=== PATIENT | male | born 1955 | race Caucasian/White ===

== ENCOUNTER 2025-01-05 13:43 | Outpatient (CLI) | payer MEDICARE, SELFPAY ==
--- NOTE | ~2025-01-05 | PE_ITS ---
EXAMINATION: PET_PETPSMAST_PT DATE: 01/05/2025 15:36 INDICATION: Prostate cancer TECHNIQUE: 4.765 mCi of Illucix Ga-68([id number]) was administered i.v. Low dose computed dagmar graphy (CT) images were acquired from the base of the brain to the base of the brain to the proximal thighs for attenuation correction and anatomic localization. Positron emission tomography (PET) image s were acquired in the same distribution beginning 77 minutes after injection. Images including fused PET/CT images were reconstructed in axial, coronal, and sagittal planes. Automated exposure control technique was employed. The dose-length product was 952.17mGy-cm. COMPARISON: None FINDINGS: Head/neck: Typical pattern of symmetric physiologic increased activity in the lacrimal, parotid and submandibula r glands as well as along the mucosa of the nasal and oral cavities, pharynx and hypopharynx. No path ologically enlarged cervical lymphadenopathy or suspicious foci of increased uptake in the visualized head or neck. Chest: Volume loss and mosaic attenuation in the bilateral lower lobes bladder significantly atelectasis wit h subsegmental regions of air trapping related to small airway disease. No suspicious pulmonary nodul es, pneumonia, pulmonary edema or pleural effusion. Heart size is normal. Mild arthroscopic coronary artery calcium location. No pericardial effusion. Thoracic aorta is normal in caliber. No pathologica lly enlarged or PSMA avid thoracic lymphadenopathy. Abdomen/pelvis/proximal thighs: Physiologic renal accumulation and excretion of activity in the kidneys, bladder and along portions o f ureters. Photopenic defect associated with a 2.7 cm exophytic cyst at the lower pole of the left ki dney. Prostatomegaly measuring 5.9 x 5.1 cm with approximately 1 cm focus of prominent asymmetric upt delia with maximal SUV of 16.8 at the anterior midline of the prostate consistent with primary prostate cancer. Normal degree and slightly heterogenous pattern of increased uptake throughout the liver wit hout radiologic correlate or dominant PSMA avid lesion. Spleen is not visualized and there are couple small nodular soft tissue densities in the region of the absent spleen which could represent mild sp lenosis. Multiple calcified gallstones in the otherwise normal decompressed gallbladder. The pancreas and bilateral adrenal glands are normal. Moderate uptake scattered throughout the bowels with typica l duodenal and proximal jejunal predominance and without radiologic correlate, also likely physiologi c. There is moderate diverticulosis along the descending and sigmoid colon without adjacent inflammat ory stranding to suggest diverticulitis. Small bilateral fat-containing hernias. Right inguinal herni a also contains the tip of the normal appendix.. No other abnormal foci of increased uptake or pathol ogically enlarged lymphadenopathy in the abdomen, pelvis or proximal thighs. Musculoskeletal: No suspicious lytic, blastic or abnormally FDG avid bone lesions. There are some chronic heterotopic ossification versus calcification along the periphery of the proximal right femoral diaphysis which s uggests sequela of old trauma. Small focus of mild likely extravasated soft tissue activity at the in jection site at the right antecubital fossa. IMPRESSION: 1. Single approximately 1 cm focus of moderate increased uptake at the anterior midline of the enlarg ed prostate consistent with primary prostate cancer. No lesion suspicious for metastatic disease. 2. Cholelithiasis. Reviewed, dictated and finalized at location A. IMPRESSION: 1. Single approximately 1 cm focus of moderate increased uptake at the anterior midline of the enlarged prostate consistent with primary prostate cancer. No l esion suspicious for metastatic disease. 2. Cholelithiasis.
--- OUTSIDE RECORDS SUMMARY | 2025-01-05 15:43 | XMS_ITS | Clinical Summary ---
Author Organization [facility] Address [address] [place] [address] Care Team Providers Care Pc Tech Name Role Phone Norman Galdamez MD Primary Care Provider [phone] Facundo Miller MD Unavailable [phone] Allergies No known active allergies Medications omeprazole (PriLOSEC) 20 mg capsule Take 1 capsule (20 mg total) by mouth every morning Active aspirin 81 mg enteric coated tablet Take 1 tablet (81 mg total) by mouth daily 30 tablet 11 9 Active Additional Information Patient taking differently:81 mg oralDaily (early AM), Indications: prevention of thrombosis, Reported on 04/01/2023 multivitamin capsule Take 1 capsule by mouth every morning Active acetaminophen (TYLENOL) 500 mg tablet Take 2 tablets (1,000 mg total) by mouth every 6 (six) hours as needed for pain 40 tablet 1 Active ibuprofen (ADVIL,MOTRIN) 600 mg tablet Take 1 tablet (600 mg total) by mouth every 6 (six) hours as needed for pain 20 tablet 1 Active amLODIPine (NORVASC) 5 mg tabletIndication s:Other secondary hypertension Take 1 tablet (5 mg total) by mouth daily 90 tablet 1 5 Active hydroxyurea (HYDREA) 500 mg capsuleIndicatio ns:Polycythemia vera (HCC) Alternate taking 1500mg and 1000mg every other day. 75 capsule 5 5 Active clotrimazole 1 % cream Apply topically 2 (two) times a day 30 g 1 5 Active Active Problems Problem Noted Date Diagnosed Date Tinea 11/17/2024 Assessment & Plan (11/17/2024 8:08 AM DANCE PROFESSOR): Clotrimazole E scribed. Keep area clean and dry. Discussed typical duration of treatment. RTC if worsening or not resolving. He is in agreement with plan states understanding. Lipid screening 04/02/2024 Assessment & Plan (04/02/2024 8:23 AM CDT): Lipid panel normal. Continue with diet and exercise. Encounter for Medicare annual wellness exam 03/16 Assessment & Plan (04/02/2024 9:26 AM CDT): Visit preventive in nature. We reviewed medications, chronic conditions, risk factors, lifestyle recommendations. Reviewed immunization recommendations. Follow-up in 1 year for annual wellness. Essential hypertension 04/02/2024 Assessment & Plan (04/02/2024 8:23 AM CDT): Normotensive. Continue taking amlodipine. Red flags reviewed. Bilateral impacted cerumen 04/02/2024 Assessment & Plan (04/02/2024 10:00 AM CDT): Canals cleared. RTC for any recurrent concerns. Aspirin long-term use 02/06/2023 Prostate cancer 01/16/2021 Assessment & Plan (04/02/2024 8:22 AM CDT): Following closely with urology, they are doing PSAs every 3 months High risk medication use 07/20/2020 Elevated PSA 01/19/2020 Assessment & Plan (04/02/2024 8:22 AM CDT): Following closely with urology, urology checking PSA every 3 months Gastroesophageal reflux disease without esophagi tis 01/14/2020 Assessment & Plan (01/14/2020 2:54 PM CDT): Stable on omeprazole and trying to eat a non stimulating diet. Screening for malignant neoplasm of colon 2019 Heart murmur previously undiagnosed 01/14/2020 Assessment & Plan (01/14/2020 2:55 PM CDT): Will await cardiology referral. Pruritus 06/10/2019 Polycythemia vera 03/04/2019 Assessment & Plan (04/02/2024 9:26 AM CDT): Has been stable. Following closely with hematology. Thrombocytosis 03/04/2019 HTN (hypertension) 02/11/2019 Assessment & Plan (11/17/2024 8:08 AM DANCE PROFESSOR): Controlled on amlodipine. No changes. Will continue to monitor. Assessment & Plan (02/11/2019 11:45 AM CDT): High blood pressures during admission - Started amlodipine 5 Chest pain 02/09/2019 Assessment & Plan (02/11/2019 11:40 AM CDT): resolved with 1 nitro at [facility] after 30 minutes, with no symptoms since. - start ASA 81 per recs from heme - Follow up with routine preventative care from PCP Pancreatic mass 02/09/2019 Assessment & Plan (02/11/2019 11:44 AM CDT): 3-4cm mass in the tail of the pancreas seen on OSH CT PE protocol - MRI - tumor appears be filled with blood. 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 - needs GI follow up and instructed to rescan in 6 months for growth Abnormal CBC 02/09/2019 Assessment & Plan (02/11/2019 11:46 AM CDT): elevated WBC, hgb, plt on admission - Heme Consulted - Believed to be PV - Follow up next week - 1g BID of hydroxyurea - obtaining tests per heme note Resolved Problems Problem Noted Date Diagnosed Date Resolved Date Encounter for screening colonoscopy 03/16/2020 04/02/2024 Overview (03/16/2020): Added automatically from request for surgery [id number] Encounters Date Type Department Care Team Description 12/16/2024 Orders Only [facility] Operating Room [facility] [place] [address] Facundo Miller MD Prostate cancer (HCC) (Primary Dx) 11/17/2024 7:30 AM DANCE PROFESSOR Office Visit [facility] [address] [address] Manda Montgomery, ROXANNE Wagner (Primary Dx); Primary hypertension; BMI 27.0-27.9,adult from Last 3 Months Immunizations Immunization Administration Dates Next Due COVID-19 mRNA (MyWave) 0.3 m L (30 mcg) vaccine (12 years and up) 08/23/2023 Influenza, Quad, Adjuvantate d, Intramuscular 08/23/2023 Influenza, Quadrivalent, Hig h Dose, Preservative Free, Intrr 06/04/2022,06/14/2021,06/28/2020 Influenza, Quadrivalent, Spl it, Intramuscular 06/12/2019 Influenza, Quadrivalent, Spl it, Preservative Free, Intramuscular 06/12/2019,06/20/2018,06/19/2018 Influenza, Trivalent, High D ose, Split, Preservative Free, Intramuscular 06/02/2024,09/17/2018 Influenza, Unspecified 06/04/2022,07/05/2020 Pfizer SARS-CoV-2 Monovalent Vaccination (12+ Yrs) PURPLE 06/04/2022,12/13/2020,11/15/2020 Pfizer Sars-Cov-2 Bivalent V accination (12+ YRS) 01/16/2023 Pneumococcal Conjugate Pcv20 04/04/2022 Pneumococcal Conjugate, Unspecified 11/2020(Deferred: Patient Refused),07/19/2020(Deferred: Patient Refused),09/16/2019(Deferred: Patient Refused) Surgical History Surgery Date Site/Laterality Comments SPLENECTOMY COLONOSCOPY 09/16/2009 - 09/15/2010 pt stated 10 years ago in [place] Medical History Medical History Date Comments GERD (gastroesophageal reflux disease) Peptic ulceration Polycythemia vera (HCC) 01/2019 Pancreatic mass 01/2019 History of bleeding ulcers Hypertension Prostate cancer (HCC) 2022 Family History Medical History Relation Name Comments Heart disease Father Prostate cancer Father Colon cancer Maternal Grandmother Colon cancer Sister Anesthesia problems Neg Hx Relation Name Status Comments Father (Age 95) Maternal Grandmother Mother (Age 91) Sister Alive Social History Tobacco Use Types Packs/Day Years Used Date Smoking Tobacco: Never Passive Smoke Exposure: Never Smokeless Tobacco: Never Tobacco Cessation:Counseling Given: Not Answered Alcohol Use Standard Drinks/Week Comments Yes 0 (1 standard drink = 0.6 oz pur e alcohol) Rarely AUDIT-C Answer Date Recorded Q1: How often do you have a drink containing alc ohol? 2-3 times a week 04/01/2023 Q2: How many drinks containi ng alcohol do you have on a typical day when you are drinking? 1 or 2 04/01/2023 Q3: How often do you have si x or more drinks on one occasion? Never 04/01/2023 PHQ-2 Answer Date Recorded PHQ-2 Total Score (If total score is 3 or more points, staff should administer the PHQ-9) 0 04/02/2024 Sex and Gender Information Value Date Recorded Sex Assigned at Not on file Legal Sex Male 9:19 PM DANCE PROFESSOR Gender Identity Not on file Sexual Orientation Not on file Obstetrics History Last Filed Vital Signs Vital Sign Reading Time Taken Comments Blood Pressure 130/74 11/17/2024 7:14 AM DANCE PROFESSOR Pulse 93 11/17/2024 7:14 AM DANCE PROFESSOR Temperature 36.6 C (97.8 F) 11/17/2024 7:14 AM DANCE PROFESSOR Respiratory Rate 18 11/17/2024 7:14 AM DANCE PROFESSOR Oxygen Saturation 95% 11/17/2024 7:14 AM DANCE PROFESSOR Inhaled Oxygen Concentration - - Weight 77.3 kg (170 lb 6.4 oz) 11/17/2024 7:14 A M DANCE PROFESSOR Height 166.4 cm (5' 5.51 ) 11/17/2024 7:[address] Body Mass Index 27.91 11/17/2024 7:14 AM DANCE PROFESSOR Plan of Treatment Health Maintenance Due Date Last Done Comments Hepatitis C Screening 1955 DTaP/Tdap/Td Vaccine (1 - Tdap) 1965 Hepatitis B Screening 1972 Zoster Vaccine (1 of 2) 1973 Covid-19 Vaccine (9 - Pfizer risk season) 2024 06/02/2024, 08/23/2023, 01/16/2023, Additional history exists Prostate Cancer Screening-PSA 03/27/2025, 04/23/2023, 02/01/2021, Additional history exists Depression Screening 04/02/2025 04/02/2024, 04/01/2023, 04/04/2022, Additional history exists Fall Risk Assessment 04/02/2025 04/02/2024, 04/01/2023, 04/04/2022, Additional history exists Well Visit 65+ 04/02/2025 04/02/2024, 03/16, 04/04/2022 Colon Cancer Screening-Colonoscopy 03/22/2030 03/22/2020 Colon Cancer Screening-CT Colonography Discontinued 03/22/2020 Colon Cancer Screening-DNA Stool Discontinued 03/22/20 Colon Cancer Screening-FIT Discontinued 03/22/2020 Colon Cancer Screening-Sigmoidoscopy Discontinued 03/22/2020 Pneumococcal vaccine 65+ Completed 04/04/2022 Influenza Vaccine Completed 06/02/2024, , 06/04/2022, Additional history exists Medical Devices Implanted Type Area Magician Helper Device Identifier Shelf Expiration Date Model / Serial / Lot 1977 Right: Leg Description:Compound fractur e in right leg 1977 Procedures Procedure Name Priority Date/Time Associated Diagnosis Comments PSA SCREEN Routine 03/27/2024 12:23 PM CDT Elevated PSA COLONOSCOPY 03/22/2020 8:24 AM CDT from Last 3 Months or Most Recently Relevant to Health Maintenance Results * (ABNORMAL) PSA screen (03/27/2024 12:23 PM CDT) PSA-Total 13.00(H) <=5.40 ng/mL Comment: Interpretive Data AGE SEX REFERENCE INTERVAL 0 minutes-150 years Female None 0 minutes-49 years Male None 50-59 years Male 0-3.90 60-69 years Male 0-5.40 70-79 years Male 0-6.20 80-150 years Male 0-6.20 The Margret PSA Total assay procedure was used. Results from different manufacturers or methods may not be comparable. Serial testing should be performed using the same method. Current interpretive data last revised 22. Testing performed by: [facility], [address] [place] [address], [place]., [address] Blood 03/27/2024 12:2 3 PM CDT 03/27/2024 12:23 PM CDT us Manda Montgomery CLOCK AND WATCH ASSEMBLER LAB BLOOD ORDERABLES Final Result LEORA [facility] 1 [facility] Department of Laboratories [place], [place] [id number] * COLONOSCOPY (03/22/2020 8:24 AM CDT) Anatomical Region Laterality Modality Other Narrative Procedure Note Damien Dee MD - 03/22/2020 8:24 AM CDT [facility] Patient Name: Malick Renteria Procedure Date: 03/22/2020 8:24 AM Date of : 1955 Admit Type: Outpatient Age: 64 Gender: Male Attending MD: Damien Dee M.D. Room: [facility] 1 Note Status: Finalized Patient Profile: This is a 64 year old male. His sister had coloncancer at approximately age 35. No specific GI complaint.Last colonoscopy 10 years ago. Procedure: Colonoscopy Indications: Screening in patient at increased risk: Familyhistory of 1st-degree relative with colorectal cancer before age 60 years, Last colonoscopy: 2009 Referring MD: Norman Galdamez M.D. Providers: Damien Dee M.D. Impression: - One 15 mm polyp in the cecum, removed with a cold snare and Jumbo cold forceps combination. Resectedand retrieved. - Diverticulosis in the sigmoid colon, in the descending colon and in the transverse colon. - Internal hemorrhoids. Recommendation: - Await pathology results. - Repeat colonoscopy in 3 years for screeningpurposes. - Continue present medications. Medicines: Monitored Anesthesia Care Complications: No immediate complications. Estimated Blood Loss: Estimated blood loss: none. Procedure: Pre-Anesthesia Assessment: - Prior to the procedure, a History and Physical was performed, and patient medications and allergieswere reviewed. The patient's tolerance of previous anesthesia was also reviewed. The risks and benefitsof the procedure and the sedation options and riskswere discussed with the patient. All questions were answered, and informed consent was obtained. Prior Anticoagulants: The patient has taken no previous anticoagulant or antiplatelet agents. ASA Grade Assessment: II - A patient with mild systemicdisease. After reviewing the risks and benefits, the patientwas deemed in satisfactory condition to undergo the procedure. The benefits, risks and alternatives of theprocedure and sedation were discussed and informed consent was obtained. All questions were answered. Please referto the signed informed consent document in the medical record. The scope was passed under direct vision.The Pediatric Colonoscope PCF-H190L [id number] was introduced through the anus and advanced to the the cecum, identified by appendiceal orifice andileocecal valve. The bowel preparation used was Miralax. The bowel preparation used was bisacodyl tablets. Bowel prep was administered using a split dose. Thequality of the bowel preparation was good. Findings: The perianal and digital rectal examinations were normal. The appendiceal orifice appeared normal. A 15 mm polyp was found in the cecum on the ileocecal valve fold..The polyp was flat. The polyp was removed with a cold snare. Prominent at the edges were removed with Jumbo cold biopsy forceps. Resection and retrieval were complete. Multiple small-mouthed diverticula were found in the sigmoid colon, descending colon and transverse colon. Internal hemorrhoids were found during retroflexion. The hemorrhoids were small. Electronically signed by Damien Dee M.D. Damien Dee M.D. 03/22/2020 10:31:28 AM Number of Addenda: 0 Note Initiated On: 03/22/2020 8:24 AM Procedure Code(s): --- Professional --- 46797, Colonoscopy, flexible; with removal of tumor(s), polyp(s), or other lesion(s) by snare technique Diagnosis Code(s): --- Professional --- Z80.0, Family history of malignant neoplasm of digestive organs K64.8, Other hemorrhoids D12.0, Benign neoplasm of cecum K57.30, Diverticulosis of large intestine without perforation orabscess without bleeding CPT copyright 2017 [employer]. All rights reserved. The codes documented in this report are preliminary and upon utilization coordinator reviewmay be revised to meet current compliance requirements. Recognized by the [employer] for promoting quality in endoscopy Damien Dee MD ENDOSCOPY PROCEDURES Final Result from Last 3 Months or Most Recently Relevant to Health Maintenance Insurance MEDICARE [employer] [id number] [place] [address] MEDICARE ADVANTAGE [facility] MEDICARE ADVANTAGE Advance Directives For more information, please contact: [phone] * Full Code (Latest Code Status on File) Date Activated Date Inactivated Comments 03/22/2020 8:44 AM 03/22/2020 4:24 PM * Full Code Date Activated Date Inactivated Comments 03/22/2020 8:44 AM 03/22/2020 8:44 AM * Full Code Date Activated Date Inactivated Comments 02/09/2019 10:18 PM 02/11/2019 5:39 PM Care Teams Pc Tech Relationship Specialty Start Date End Date Norman Galdamez MD [address] [place] [address] PCP - General Family Medicine 01/27/20 [place] [address] [place] [address] Consulting Physician Urology 08/14/23
--- OUTSIDE RECORDS SUMMARY | 2025-01-05 15:43 | XMS_ITS | Continuity of Care Document ---
Author Organization [facility] Address [address] [place] [address] Phone Care Team Providers Care Promotions Assistant Sales Marketing Name Role Phone Alexys HERNANDEZ, Ashutosh Unavailable Unavaila ble Procedures Procedure Date OFFICE/OUTPATIENT VISIT, [facility] OPHTHALMIC BIOMETRY OPHTHALMIC BIOMETRY Advance Directives Directive Yes / No Effective Date File Name No Information Encounters Encounter Description Practice Location Reason(s) For Visit Diagnoses Date Provider Providers Copied on Encounter OFFICE/OUTPAT IENT VISIT, [facility], [address] [facility] [address] [facility] [address], [place], [place], [id number], [place] tel:[phone] Oph Consult ROSANGELA Christian No Information Alexys Boykin. [address] [facility], [address], [place], [place], [id number], [place]. tel:[phone] Referring Provider: Genaro Lee, [place], [address] . tel:[phone] Family History Family Member Type Diagnosis Age At Onset No Information Payers Payer name Insurance type Covered republican ID Authoriza tion(s) [employer] MB [id number] Social History Type Description Quantity Date Captured Comments Sex Male Smoking Status No Information Chief Complaint And Reason For Visit No Information Reason For Referral Reason For Referral No Information History Of Present Illness Encounter Date Complaint History Of Prese nt Illness No Information Functional Status Date Functional Assessmen t No Information Instructions Date Instruction Additional Infor mation No Information Assessments Type Assessment Date No Information Patient Care Teams Name Effective Dates (start - stop) Status Members No Information
--- OUTSIDE RECORDS SUMMARY | 2025-01-05 15:43 | XMS_ITS | Continuity of Care Document ---
Author Organization [facility] Address [address] [place] [address] Phone Care Team Providers Care Tool Trouble Shooter Name Role Phone Eros Pro MD Unavailable Unavailable Allergies, Adverse Reactions, Alerts Substance Reaction Status Criticality No Known Drug Allergies Active No I nformation Medications Medication Instructions Dosage Effective Dates (start - stop) Status Comments amlodipine 5 mg tablet take 1 tablet by oral route every day 5 MG - Active aspirin 81 mg tablet,delayed release take 1 tablet by oral route every day 81 MG - Active hydroxyurea 500 mg capsule take 1 capsule by oral route 2 times every day - Active omeprazole 20 mg capsule,delayed release take 1 capsule by oral route every day 20 MG - Active Procedures Procedure Date FALL PLAN OF CARE DOC'D URINE INCON PLAN DOC'D PRES/ABSN URINE INCON ASSESS Pt inelig neg scrn depres PREVENTATIVE-NEW: 40-64 BODY MASS INDEX DOCD SYST BP >= 140 MM HG6 IT DIAST BP >= 90 MM HG Advance Directives Directive Yes / No Effective Date File Name No Information Encounters Encounter Description Practice Location Reason(s) For Visit Diagnoses Date Provider Providers Copied on Encounter [facility], [address], [place], [place], [id number] , [place] tel: [phone] [facility] No Information 0 Morteza Cooney. [address] [facility], [address], [place], [place], [id number] , [place]. tel: [phone] [facility], [address] [place] [address], [id number] , tel: [phone] [facility] No Information 9 Morteza Cooney. [address] [place] [address], [address] [place], [place], [address] [place] [address] , . tel: [phone] [facility], [address], [place], [place], [id number] , tel: [phone] [facility] No Information 9 Morteza Cooney. [address] [place] [address], [address] , [place], [place], [address] [place] [address] , . tel: [phone] PREVENTATIVE -NEW: 40-64 [facility], [address], [place], [place], [id number] , tel: [phone] [facility] Chronic Conditions (chief complaint) Encounter for general health examinationEssential hypertensionPolycyth emiaThrombocytosisPa ncreatic mass 9 Morteza Cooney. [address] [place] [address], [address], [id number] , . tel: [phone] Referring Provider: Eros Pro, [address] [place] [address] [address] , [place], [address] . tel:[phone] Family History Family Member Type Diagnosis Age At Onset No Information Immunizations Vaccine Date Status Comments Fluzone Quad, preservative free, split virus, 0.5mL dosage administered Note: [facility] ; Source: Other Provider Fluzone High-Dose, high dose , preservative free administered Source: Source Unspe cified Payers Payer name Insurance type Covered libertarian ID Authoriza tion(s) [facility] BL [id number] Social History Type Description Quantity Date Captured Comments Alcohol Use Details Unknown Caffeine Use Details Unknown Tobacco Use Status No Information Smoking Status No Information Sex Male Chief Complaint And Reason For Visit No Information Reason For Referral Reason For Referral No Information History Of Present Illness Encounter Date Complaint History Of Prese nt Illness Chronic Conditions *See Chronic Conditions HPI Functional Status Date Functional Assessmen t No Information Instructions Date Instruction Additional Infor mation Will discuss with GI. Related to Pancreatic mass Continue current med ications for now. Related to Essential hypertension F/u with hematology as planned. Related to Polycythemia Continue current med ications for now. Related to Thrombocytosis Get appropriate vaccines. Relate d to Encounter for general health examination Disease process Disease process Assessments Type Assessment Date No Information Patient Care Teams Name Effective Dates (start - stop) Status Members No Information
--- OUTSIDE RECORDS SUMMARY | 2025-01-05 15:43 | XMS_ITS | Referral Summary ---
Author Organization [facility] Address [address] [place] [address] Care Team Providers Care Policy Analyst Name Role Phone Norman Galdamez MD Primary Care Provider +1 -[phone] Facundo Miller MD Unavailable [phone]- [phone] Encounters Date Type Department Care Team Description 12/16/2024 Orders Only [facility] Operating Room [address] [place] [address] Facundo Miller MD Prostate cancer (HCC) (Primary Dx) 11/17/2024 7:30 AM BULLET SWAGING MACHINE OPERATOR [facility] Visit [facility] [address] [address] Manda Montgomery NP Tinea (Primary Dx); Primary hypertension; BMI 27.0-27.9,adult from Last 3 Months Allergies No known active allergies Medications omeprazole [...] hours as needed for pain 40 tablet Active ibuprofen (ADVIL,MOTRIN) 600 mg tablet Take [...] 11/17/2024 Assessment & Plan (11/17/2024 8:08 AM BULLET SWAGING MACHINE OPERATOR): Clotrimazole E scribed. Keep area clean and [...] 02/11/2019 Assessment & Plan (11/17/2024 8:08 AM BULLET SWAGING MACHINE OPERATOR): Controlled on amlodipine. No changes. Will continue to monitor. Assessment & Plan (02/11/2019 11:45 AM CDT): High blood pressures during admission - Started amlodipine 5 Chest pain 02/09/2019 Assessment & Plan (02/11/2019 11:40 AM CDT): resolved with 1 nitro at [facility] after 30 minutes, with no symptoms [...] (03/16/2020): Added automatically from request for surgery [id number] Immunizations Immunization Administration Dates Next Due COVID-19 mRNA (Quincee) 0.3 m L (30 mcg) vaccine (12 [...] 11/2020(Deferred: Patient Refused),07/19/2020(Deferred: Patient Refused),09/16/2019(Deferred: Patient Refused) Social History Tobacco Use Types Packs/Day Years [...] on file Legal Sex Male 9:19 PM BULLET SWAGING MACHINE OPERATOR Gender Identity Not on file Sexual Orientation Not on file Last Filed Vital Signs Vital Sign Reading Time Taken Comments Blood Pressure 130/74 11/17/2024 7:14 AM BULLET SWAGING MACHINE OPERATOR Pulse 93 11/17/2024 7:14 AM BULLET SWAGING MACHINE OPERATOR Temperature 36.6 C (97.8 F) 11/17/2024 7:14 AM BULLET SWAGING MACHINE OPERATOR Respiratory Rate 18 11/17/2024 7:14 AM BULLET SWAGING MACHINE OPERATOR Oxygen Saturation 95% 11/17/2024 7:14 AM BULLET SWAGING MACHINE OPERATOR Inhaled Oxygen Concentration - - Weight 77.3 kg (170 lb 6.4 oz) 11/17/2024 7:14 A M BULLET SWAGING MACHINE OPERATOR Height 166.4 cm (5' 5.51 ) 11/17/2024 7:14 AM CS T Body Mass Index 27.91 11/17/2024 7:14 AM BULLET SWAGING MACHINE OPERATOR Plan of Treatment Not on file Medical Devices Implanted Type Area Electric Truck Driver Device Identifier Shelf Expiration Date Model / [...] data last revised 22. Testing performed by: [facility], [address] [place] [address], [place]., [address] Blood 03/27/2024 12:2 3 PM CDT 03/27/2024 12:23 PM CDT Manda Montgomery UNHAIRING INSPECTOR LAB BLOOD ORDERABLES Final Result [facility] 1 [facility] Department [place] [address] * COLONOSCOPY (03/22/2020 8:24 AM CDT) Anatomical Region Laterality Modality Other Narrative Procedure Note Damien Dee MD - 03/22/2020 8:24 AM CDT [facility] Patient Name: Malick Renteria Procedure Date: 03/22/2020 8:24 AM Date of : 1955 Admit Type: Outpatient Age: 64 Gender: Male Attending MD: Damien Dee M.D. Room: [facility] ENDOSCOPY ROOM 1 Note Status: Finalized Patient [...] passed under direct vision.The Pediatric Colonoscope [id number]-H190L [id number] was introduced through the anus and advanced [...] 8:24 AM Procedure Code(s): --- Professional --- 38140, Colonoscopy, flexible; with removal of tumor(s), polyp(s), or other lesion(s) by snare technique Diagnosis Code(s): --- Professional --- Z80.0, Family history of malignant neoplasm of digestive organs K64.8, Other hemorrhoids D12.0, Benign neoplasm of cecum K57.30, Diverticulosis of large intestine without perforation orabscess without bleeding CPT copyright 2017 [employer]. All rights reserved. The codes documented in this report are preliminary and upon integrated campaign manager reviewmay be revised to meet current compliance requirements. Recognized by the [employer] for promoting quality in endoscopy Damien Dee MD ENDOSCOPY PROCEDURES Final Result from Last 3 Months or Most Recently Relevant to Health Maintenance Insurance MEDICARE [employer] [facility] MEDICARE ADVANTAGE MEDICARE ADVANTAGE Advance Directives For more information, please contact: [phone] * Full Code (Latest Code Status on File) Date Activated Date Inactivated Comments 03/22/2020 8:44 AM 03/22/2020 4:24 PM * Full Code Date Activated Date Inactivated Comments 03/22/2020 8:44 AM 03/22/2020 8:44 AM * Full Code Date Activated Date Inactivated Comments 02/09/2019 10:18 PM 02/11/2019 5:39 PM Care Teams Policy Analyst Relationship Specialty Start Date End Date Norman Galdamez MD [address] [place] [address] PCP - General Family Medicine 01/27/20 [place] [address] [place] [address] Consulting Physician Urology 08/14/23
--- OUTSIDE RECORDS SUMMARY | 2025-01-05 15:43 | XMS_ITS | Encounter Summary ---
Author Organization [facility] Address [address] [place] [address] Phone Care Team Providers Care Tufting Machine Operator Name Role Phone Norman Galdamez MD Primary Care Provider +1 -[phone] Facundo Miller MD Unavailable +1- [phone] Encounter Details Date Type Department Care Team (Latest Contact Info) Description 04/23/2023 Orders Only [facility] Scanning, Provider Social History Tobacco Use Types Packs/Day Years Used Date Smoking Tobacco: Never Smokeless Tobacco: Never Alcohol Use Standard Drinks/Week Comments Yes 0 [...] points, staff should administer the PHQ-9) 0 04/01/2023 Sex and Gender Information Value Date Recorded Sex Assigned at Not on file 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 Gender Identity Not on file Sexual Orientation Not on file documented as of this encounter Plan of Treatment Not on file documented as of this encounter Procedures Procedure Name Priority Date/Time Associated Diagnosis Comments SCAN - LABS 04/23/2023 documented in this encounter Results * SCAN - LABS (04/23/2023) us Provider Scanning Final Result documented in this encounter Visit Diagnoses Not on filedocumented in this encounter Care Teams Tufting Machine Operator Relationship Specialty Start Date End Date Norman Galdamez MD [address] [place] [address] PCP - General Family Medicine 01/27/20 [place] [address] [place] [address] Consulting Physician Urology 08/14/23 documented as of this encounter
--- OUTSIDE RECORDS SUMMARY | 2025-01-05 15:43 | XMS_ITS | Encounter Summary ---
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 Gender Identity Not on file Sexual Orientation Not on file documented as of this encounter Plan of Treatment Not on file documented as of this encounter Procedures Procedure Name Priority Date/Time Associated Diagnosis Comments SCAN - RADIOLOGY/IMAGING 05/18/2023 documented in this encounter Results * SCAN - RADIOLOGY/IMAGING (05/18/2023) Anatomical Region Laterality Modality Other us Provider Scanning Final Result documented in this encounter Visit Diagnoses Not on filedocumented in this encounter Care Teams Pattern Illustrator Relationship Specialty Start Date End Date Norman Galdamez MD [address] [place] [address] PCP - General Family Medicine 01/27/20 [place] [address] [place] [address] Consulting Physician Urology 08/14/23 documented as of this encounter
--- OUTSIDE RECORDS SUMMARY | 2025-01-05 15:43 | XMS_ITS | Encounter Summary ---
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 Gender Identity Not on file Sexual Orientation Not on file documented as of this encounter Plan of Treatment Not on file documented as of this encounter Procedures Procedure Name Priority Date/Time Associated Diagnosis Comments SCAN - RADIOLOGY/IMAGING 07/24/2023 documented in this encounter Results * SCAN - RADIOLOGY/IMAGING (07/24/2023) Anatomical Region Laterality Modality Other us Provider Scanning Final Result documented in this encounter Visit Diagnoses Not on filedocumented in this encounter Care Teams Basket Mender Relationship Specialty Start Date End Date Norman Galdamez MD [address] [place] [address] PCP - General Family Medicine 01/27/20 [place] [address] [place] [address] Consulting Physician Urology 08/14/23 documented as of this encounter
--- OUTSIDE RECORDS SUMMARY | 2025-01-05 15:43 | XMS_ITS ---
Author Organization [facility] Address [address] [place] [address] Care Team Providers Care Rn Or Lvn Name Role Phone Norman Galdamez MD Primary Care Provider +1 -[phone] Facundo Miller MD Unavailable +1- [phone] Active Problems Problem Noted Date Diagnosed Date Tinea 11/17/2024 Assessment & Plan (11/17/2024 8:08 AM QUALITY IMPROVEMENT COORDINATOR): Clotrimazole E scribed. Keep area clean and [...] 02/11/2019 Assessment & Plan (11/17/2024 8:08 AM QUALITY IMPROVEMENT COORDINATOR): Controlled on amlodipine. No changes. Will continue to monitor. Assessment & Plan (02/11/2019 11:45 AM CDT): High blood pressures during admission - Started amlodipine 5 Chest pain 02/09/2019 Assessment & Plan (02/11/2019 11:40 AM CDT): resolved with 1 nitro at [facility] after 30 minutes, with no symptoms [...] hydroxyurea - obtaining tests per heme note Current Treatment and Therapy Plans No current plan information found. Other Current Plans THERAPEUTIC PHLEBOTOMY* Plan Start Date:03/09/2019 Plan Provider:Rodrigo Moreno MD Linked Problems Polycythemia vera (HCC) Treatment Medications No medications scheduled. Past Treatment and Therapy Plans No past plan information found. Lifetime Dose Tracking * Chemical Lifetime Dose Automatic Entry Manual Entr y DLP 2,834 mGycm 2,834 mGycm 0 mGycm Resolved Problems Problem Noted Date Diagnosed Date Resolved Date Encounter for screening colonoscopy 03/16/2020 04/02/2024 Overview (03/16/2020): Added automatically from request for surgery [id number]
--- OUTSIDE RECORDS SUMMARY | 2025-01-05 15:43 | XMS_ITS | Encounter Summary ---
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 Gender Identity Not on file Sexual Orientation Not on file documented as of this encounter Plan of Treatment Not on file documented as of this encounter Procedures Procedure Name Priority Date/Time Associated Diagnosis Comments SCAN - PATHOLOGY 07/02/2023 documented in this encounter Results * SCAN - PATHOLOGY (07/02/2023) us Provider Scanning Final Result documented in this encounter Visit Diagnoses Not on filedocumented in this encounter Care Teams Gaming Manager Relationship Specialty Start Date End Date Norman Galdamez MD [address] [place] [address] PCP - General Family Medicine 01/27/20 [place] [address] [place] [address] Consulting Physician Urology 08/14/23 documented as of this encounter
--- OUTSIDE RECORDS SUMMARY | 2025-01-05 15:43 | XMS_ITS | Encounter Summary ---
Author Organization 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 Gender Identity Not on file Sexual Orientation Not on file documented as of this encounter Plan of Treatment Not on file documented as of this encounter Procedures Procedure Name Priority Date/Time Associated Diagnosis Comments SCAN - LABS 05/10/2023 documented in this encounter Results * SCAN - LABS (05/10/2023) us Provider Scanning Final Result documented in this encounter Visit Diagnoses Not on filedocumented in this encounter Care Teams Certified Tower Climber Relationship Specialty Start Date End Date Norman Galdamez MD [address] [place] [address] PCP - General Family Medicine 01/27/20 [place] [address] [place] [address] Consulting Physician Urology 08/14/23 documented as of this encounter
== END 2025-01-05 13:44 | disposition home or self-care (01) ==
PROVIDERS: PCP Family Medicine; Visit Provider Radiology Radiation Oncology
DX: C61 Malignant neoplasm of prostate (principal); K80.20 Calculus of gallbladder without cholecystitis without obstruction
CPT/HCPCS: 78815; A9596